=== PATIENT | female | born 2000 | race Caucasian/White ===

== ENCOUNTER 2021-04-26 22:20 | Emergency (ER) | payer MEDICAID ==
[~2021-04-26] VITALS: Ht 175.3 cm; Wt 108.9 kg
[2021-04-26 22:29] VITALS: BP 140/87
--- NOTE | 2021-04-26 23:18 | NUR ---
PT TAKEN TO BED 5
--- NOTE | 2021-04-26 23:43 | NUR ---
PATIENT PRESENTS TO ED WITH A CAT BITE ON THE RIGHT THUMB . PT STATES WAS OUT ON A WALK WITH THE FAMILY AT NIGHT AT 20:00-2030 AND SAW A CAT; PATIENT PROCEEDED TO PET THE CAT AND THEN GOT BIT; PATIENT DOES NOT KNOW IF IT IS A STRAY. DENIES N/V/D; SKIN IS PINK/WARM/DRY; AAOX4 WITH EVEN AND STEADY GAIT; LUNGS CLEAR BL; HR EVEN AND REGULAR; PT DENIES ANY FEVER, CP, SOB, OR COUGH AT THIS TIME; PATIENT STATES PAIN OF 2/10 AT THIS TIME BUT FEELS MORE LIKE A DISCOMFORT BUT THROBBING; PATIENT DOES NOT KNOW IF HER VACCINATIONS ARE UP TO DATE. VSS; PATIENT POSITIONED FOR COMFORT; HOB ELEVATED; BEDRAILS UP X2; BED DOWN. ER MD MADE AWARE OF PT STATUS. DENIES [facility]
--- NOTE | 2021-04-27 00:15 | NUR ---
Dr. Watts examining patient.
[2021-04-27] MEDS ORDERED: AMOX-1000 PO (00:24)
[2021-04-27 00:33] VITALS: BP 135/95
--- NOTE | 2021-04-27 00:33 | NUR ---
Patient discharged with v/s stable. Written and verbal after care instructions given and explained. Patient alert, oriented and verbalized understanding of instructions. Ambulatory with steady gait. All questions addressed prior to discharge. ID band removed. Patient advised to follow up with PMD. Rx of Augmentin [id number] given. Patient educated on indication of medication including possible reaction and side effects. Opportunity to ask questions provided and answered.
== END 2021-04-27 00:33 | disposition home or self-care (01) ==
LOC: MED 22:20
DX: S61.451A Open bite of right hand, initial encounter (principal); W55.01XA Bitten by cat, initial encounter; Y93.89 Activity, other specified; Y92.89 Other specified places as the place of occurrence of the external cause; Y99.8 Other external cause status
CPT/HCPCS: 99283